=== PATIENT | female | born 1980 | race Caucasian/White ===

== ENCOUNTER → 2020-07-04 15:19 | Outpatient (CLI) | payer OTHER, SELFPAY ==
[2020-07-04 15:51] LABS: D-Dimer Quantitative (DVT/PE) 0.39 FEU/ug/m (0.27-0.49)
== END ==
PROVIDERS: PCP Student in an Organized Health Care Education/Training Program; Referring Provider Nurse Practitioner Primary Care; Visit Provider Nurse Practitioner Primary Care
DX: R07.9 Chest pain, unspecified (principal); R06.02 Shortness of breath
CPT/HCPCS: 85379

== ENCOUNTER 2020-07-30 10:15 | Emergency (ER) | payer OTHER, SELFPAY ==
[2020-07-30 10:18] VITALS: BP 150/93; PULSE 127; RESP 17; TEMP 37.9; O2SAT 98; BMI 28.1
--- NOTE | 2020-07-30 10:34 | EKG12_ITS ---
Test Reason : PALPS Blood Pressure : / mmHG Vent. Rate : 105 BPM Atrial Rate : 105 BPM P-R Int : 126 ms QRS Dur : 082 ms QT Int : 334 ms P-R-T Axes : 071 061 053 degrees QTc Int : 441 ms Sinus tachycardia Otherwise normal ECG Confirmed by GINA PETE, PADMINI ([id number]), newspaper editor managing BRENDA OSUNA ([id number]) on 08/02/2020 12:31:55 PM Referred By: ELAN Confirmed By:PADMINI FUENTES MD
--- NOTE | 2020-07-30 10:34 | CT_ITS ---
STUDY: CTA CHEST REASON FOR EXAM: Female, 39 years old. shortness of breath RADIATION DOSAGE (If Supplied By Facility): CTDIvol = ( 9.49 ) mGy, DLP = ( 324.93 ) mGycm TECHNIQUE: The examination was performed with the intravenous administration of IV 100mL Isovue-370. Post-processing of the angiographic images was performed, with multiplanar reformation and 3D reconstruction. Individualized dose optimization techniques were used for this CT. COMPARISON: None. FINDINGS: Normal enhancement of the main pulmonary artery and right and left pulmonary arteries. Normal enhancement of the bilateral peripheral pulmonary arteries. There is no demonstrated pulmonary embolism. Normal thoracic aorta and visualized great vessels. There is no demonstrated aortic dissection. Normal heart and pericardium. Normal mediastinum. Normal hilar regions. Normal visualized trachea and bronchi. The lungs are well expanded. There is a 5.5 mm semisolid nodule in the anterior basal segment of the left lower lobe, axial image 73, sagittal image 243. In a low risk patient, follow-up in 12 months would be adequate. Otherwise normal pulmonary parenchyma. Normal pleura. Normal chest wall structures. Normal osseous structures. Normal visualized upper abdomen. CT/CTA Chest W/WO Contrast IMPRESSION: Normal CTA chest examination, without a demonstrated pulmonary embolism or arterial dissection. Left lower lobe pulmonary nodule with recommendations as above. Electronically Signed: Hakan Sharp MD at 12:08 EST , Service support ,
[2020-07-30 10:42] VITALS: O2SAT 100
--- NOTE | 2020-07-30 10:44 | ED.DCSUM_ITS ---
History of Present Illness Chief Complaint: Palpitations Informant: Patient Narrative: 39-year-old female presenting with near syncopal event on . Patient states that she has been tachycardic at home. She denies any chest pain but does admit to some shortness of breath. On she stated that she felt like she was going to pass out and sat on the couch and do deep breathing. She has not had a return of those symptoms. Patient has body aches but does not have chills, change in taste or smell, cough. Patient admits to having COVID-19 in the end of May and recovered. Patient is on control. No history of DVT/PE. Past Medical History - Allergies and Home Meds Allergies/Adverse Reactions: Allergies azithromycin Allergy (Verified 07/30/20 10:17) ABD PAIN sulfamethoxazole [From Bactrim] Allergy (Verified 07/30/20 10:17) Rash trimethoprim [From Bactrim] Allergy (Verified 07/30/20 10:17) Rash acetaminophen [From Vicodin] Adverse Reaction (Verified 07/30/20 10:17) TRIPLE VISION hydrocodone [From Vicodin] Adverse Reaction (Verified 07/30/20 10:17) TRIPLE VISION Primary Care Physician: Steven Shepherd DO [Primary Care Provider] - Prior records reviewed: Yes Past Medical History: - - Patient denies significant medical history. Surgical History: noncontributory Lives: Spouse/ Significant Other Smoking Status: Never smoker Alcohol: None Drugs: None Review of Systems General: Denies: Chills, Fever, Malaise Eyes: Denies: Visual changes - bilaterally, Diplopia Cardiovascular: Reports: Palpitations, Heart racing. Denies: Chest pain Respiratory: Reports: Cough. Denies: Dyspnea, Sputum Gastrointestinal: Denies: Abdominal pain, Nausea, Vomiting, Diarrhea Genitourinary: Denies: Dysuria, Hematuria Musculoskeletal: Denies: Myalgias, Arthralgias Skin: Denies: Rash, Abscess Neurological: Denies: Headache, Weakness Psych: Denies: Depression, Anxiety Physical Exam Vital Signs/Narrative: Vital Signs Temp Pulse Resp BP Pulse Ox 07/30/20 10:42 100 07/30/20 10:18 100.2 F H 127 H 17 150/93 H 98 General: Well nourished, No Acute Distress Head: Normocephalic, Atraumatic Eyes: Perrl, EOMI ENT: Moist mucous membranes, No rhinorrhea Neck: Supple, Nontender Cardiovascular: Regular rhythm, Tachycardia Respiratory: No distress, CTA bilaterally Abdomen: Soft, Nontender, Nondistended Extremities: Nontender, No edema Skin: Normal color, No rash. Negative for: Cyanosis, Diaphoresis Neurological: Alert, Oriented x3, Cranial nerves II-XII grossly intact Psychological: Normal affect, Normal Mood Diagnostic/Tx/Re-eval Clinical Impression(s) from Imaging Studies Chest CTA 07/30/20 10:34 IMPRESSION: Normal CTA chest examination, without a demonstrated pulmonary embolism or arterial dissection. Left lower lobe pulmonary nodule with recommendations as above. Electronically Signed: Hakan Sharp MD at 12:08 EST , Service support , Laboratory Data 07/30/20 07/30/20 10:50 10:50 WBC 4.4 RBC 4.75 Hgb 14.0 Hct 42.8 MCV 90.1 MCH 29.5 MCHC 32.7 RDW Std Deviation 46.0 H RDW Coeff of Gali 13.8 Plt Count 260 MPV 10.0 Immature Gran % (Auto) 0.000 Neut % (Auto) 57.1 Lymph % (Auto) 32.4 [place] % (Auto) 8.0 Eos % (Auto) 1.6 Baso % (Auto) 0.9 Absolute Neuts (auto) 2.5 Absolute Lymphs (auto) 1.41 Nucleated RBC % 0 Sodium 137 Potassium 3.6 Chloride 105 Carbon Dioxide 28.0 Anion Gap 4 L BUN 14 Creatinine 0.92 Estim Creat Clear Calc 74.61 Est GFR (MDRD) Af Amer 87 Est GFR (MDRD) Non-Af 72 BUN/Creatinine Ratio 15.2 Glucose 103 Calcium 9.6 Troponin I < 0.015 - Medical Decision Making 39-year-old female presenting for tachycardia and concern for pulmonary embolism as she recently had Covid and is on a control pill. Patient had EKG performed on arrival which shows a sinus rhythm at 105 bpm without signs of ischemic changes as interpreted by myself. Had cardiac work-up which was negative. Patient is CTA of the chest which was negative for pulmonary embolism or dissection or other acute pulmonary process. Patient does have a pulmonary nodule. This was discussed with her. I think she is safe to be discharged home at this time. Impression: 1. Tachycardia 2. Pulmonary nodule ED Disposition - Plan for ED Patient: Disposition: Home or Assisted Living Instructions: ED Pulmonary Nodule, Solitary Referrals: Steven Shepherd DO [Primary Care Provider] -
[2020-07-30] MEDS: Aspirin 81 MG TAB.CHEW 324 MG PO (10:54)
[2020-07-30 11:01] LABS: Absolute Lymphocyte Count 1.41 X10^3/uL (0.83-4.51); Absolute Neutrophil Count 2.5 X10^3/uL (2.0-7.7); Basophil# 0.04 X10^3/uL; Basophil% 0.9 % (0-1); Eosinophil# 0.07 X10^3/uL; Eosinophils% 1.6 % (0-5); Hematocrit 42.8 % (37-47); Lymphocyte # 1.41 X10^3/ul (4.0); Lymphocyte % 32.4 % (19-41); Mean Corp Hgb Conc 32.7 g/dL (32-36); Mean Corpuscular Hgb 29.5 pg (27.0-32.0); Mean Corpuscular Volume 90.1 fL (81-99); Monocyte# 0.35 X10^3/uL; NRBC Flagged by Analyzer 0 % (0-5); Neutrophil # 2.48 X10^3/uL (2.7-7.7); Neutrophil % 57.1 % (47-70); Platelet Count 260 K/mm3 (150-450); RBC Distribution Width CV 13.8 % (11.6-14.6); Red Blood Count 4.75 M/mm3 (4.2-5.4); White Blood Count 4.4 K/mm3 (4.4-11.0)
[2020-07-30] MEDS: Acetaminophen 500 MG Tablet 1000 MG PO (11:10)
[2020-07-30 11:19] LABS: Anion Gap 4 (5-15); BUN 14 mg/dL (7-18); BUN/Creat Ratio 15.2 RATIO (10-20); Calcium,Total 9.6 mg/dL (8.5-10.1); Chloride 105 mmol/L (98-107); Creatinine, Serum 0.92 mg/dL (0.55-1.02); EST Glomerular Filtration Rate 72 mL/min (>60); Est Glom Filt Rate - Afr Amer 87 mL/min (>60); Estimated Creatinine Clearance 74.61 ml/min; Glucose 103 mg/dL (74-106); Potassium 3.6 mmol/L (3.5-5.1); Sodium Level 137 mmol/L (136-145)
[2020-07-30 13:10] VITALS: BP 111/76; PULSE 71; RESP 18; TEMP 37; O2SAT 97
== END 2020-07-30 13:13 | disposition home or self-care (01) ==
PROVIDERS: Emergency Provider Student in an Organized Health Care Education/Training Program; PCP Student in an Organized Health Care Education/Training Program
DX: R00.0 Tachycardia, unspecified (principal); R91.1 Solitary pulmonary nodule; Z88.1 Allergy status to other antibiotic agents; Z88.2 Allergy status to sulfonamides; Z88.5 Allergy status to narcotic agent
CPT/HCPCS: 71275; 80048; 84484; 85025; 93005; 99285; Q9967; A4216

== ENCOUNTER 2020-08-05 21:10 | Emergency (ER) | payer OTHER, SELFPAY ==
[2020-08-05 21:11] VITALS: BP 146/115; PULSE 138; RESP 18; TEMP 36.8; O2SAT 100; BMI 27.9
--- NOTE | 2020-08-05 22:19 | EKG12_ITS ---
Test Reason : TACHYCARDIA Blood Pressure : / mmHG Vent. Rate : 105 BPM Atrial Rate : 105 BPM P-R Int : 126 ms QRS Dur : 074 ms QT Int : 338 ms P-R-T Axes : 074 080 076 degrees QTc Int : 446 ms Sinus tachycardia Otherwise normal ECG Confirmed by CAMILA PETE, JEOVANY ([id number]), editor index BRENDA OSUNA ([id number]) on 08/08/2020 10:57:49 A M Referred By: DARIN Confirmed By:ICCI JENSEN MD
--- NOTE | 2020-08-05 22:30 | RAD_ITS ---
STUDY: X-RAY CHEST REASON FOR EXAM: Female, 39 years old. chest pain TECHNIQUE: AP portable COMPARISON: None. FINDINGS: The lungs are clear and expanded. There is no demonstrated pleural abnormality. Normal size heart. Normal mediastinum and casandra. Normal visualized pulmonary arteries. Normal visualized aortic arch and descending thoracic aorta. Normal visualized thoracic spine. Normal visualized ribs, clavicles, and shoulders. There is no demonstrated abnormality of the visualized soft tissue structures of the upper abdomen. RAD/Chest 1 View (Portable) IMPRESSION: Normal x-ray examination of the chest. Electronically Signed: Kirk Prasad MD at 22:43 EST , Service support ,
[2020-08-05 22:35] LABS: Absolute Lymphocyte Count 2.57 X10^3/uL (0.83-4.51); Absolute Neutrophil Count 2.4 X10^3/uL (2.0-7.7); Basophil# 0.04 X10^3/uL; Basophil% 0.7 % (0-1); Eosinophil# 0.11 X10^3/uL; Hematocrit 39.9 % (37-47); Hemoglobin 13.2 g/dL (12.0-15.0); Lymphocyte # 2.57 X10^3/ul (4.0); Lymphocyte % 45.9 % (19-41); Mean Corp Hgb Conc 33.1 g/dL (32-36); Mean Corpuscular Hgb 29.7 pg (27.0-32.0); Mean Corpuscular Volume 89.9 fL (81-99); Mean Platelet Vol. 10.6 fl (6.2-12.0); Monocyte# 0.53 X10^3/uL; Monocyte% 9.5 % (0-10); NRBC Flagged by Analyzer 0 % (0-5); Neutrophil # 2.35 X10^3/uL (2.7-7.7); Neutrophil % 41.9 % (47-70); Platelet Count 295 K/mm3 (150-450); RBC Distribution Width SD 46.3 fl (35.1-43.9); Red Blood Count 4.44 M/mm3 (4.2-5.4); White Blood Count 5.6 K/mm3 (4.4-11.0)
[2020-08-05] MEDS: 0.9% Normal Saline 1,000 ML 1000 ML IV (22:52)
[2020-08-05 22:55] LABS: Anion Gap 6 (5-15); BUN 14 mg/dL (7-18); BUN/Creat Ratio 15.1 RATIO (10-20); Calcium,Total 9.2 mg/dL (8.5-10.1); Chloride 105 mmol/L (98-107); Creatinine, Serum 0.92 mg/dL (0.55-1.02); EST Glomerular Filtration Rate 72 mL/min (>60); Est Glom Filt Rate - Afr Amer 87 mL/min (>60); Estimated Creatinine Clearance 74.61 ml/min; Glucose 121 mg/dL (74-106); Magnesium 2.2 mg/dL (1.6-2.6); Potassium 3.3 mmol/L (3.5-5.1); Sodium Level 140 mmol/L (136-145); Thyroid Stim Hormone (TSH) 6.43 uIU/mL (0.358-3.74)
[2020-08-05 23:01] LABS: BNP,B-Type NATRIURETIC PEPTIDE 16.8 pg/mL (0-100)
[2020-08-06 00:35] VITALS: BP 127/82; PULSE 86; RESP 19; O2SAT 98
--- NOTE | 2020-08-06 00:48 | ED.DCSUM_ITS ---
History of Present Illness Chief Complaint: Syncope Informant: Patient Narrative: Patient is a 39-year-old female with past medical history of Covid in May of this year, 6 weeks ago, presenting with palpitations syncope. States she is never fully recovered from Covid and actually was referred to see the [facility] clinic in [place]. Patient states that she has had intermittent episodes of feeling her heart racing and was actually seen in the ER for similar episode 1 week ago. At that time she had blood work including a CTA of the chest. She was instantly found have a pulmonary nodule but nothing else. She follow-up with her PCP today who referred her to the [facility] recovery clinic. Tonight patient woke up from a nap and then felt off. She walked down the hallway to put her kids to bed and started to feel that she was having a hard time to stand up and like she might pass out. She checked her heart rate and it was 141. Patient became very nervous that something could be wrong with her heart. She states she had pain associated with a fast heart rate and f eeling her heart was pumping out of her chest. Patient denies any shortness of breath but states that she felt like she was breathing faster when this was going on. Patient denies any other complaints at this time. She denies any swelling of her legs. Past Medical History - Allergies and Home Meds Allergies/Adverse Reactions: Allergies azithromycin Allergy (Verified 08/05/20 21:11) ABD PAIN sulfamethoxazole [From Bactrim] Allergy (Verified 08/05/20 21:11) Rash trimethoprim [From Bactrim] Allergy (Verified 08/05/20 21:11) Rash acetaminophen [From Vicodin] Adverse Reaction (Verified 08/05/20 21:11) TRIPLE VISION amoxicillin [From Augmentin] Adverse Reaction (Verified 08/05/20 21:11) Diarrhea clavulanic acid [From Augmentin] Adverse Reaction (Verified 08/05/20 21:11) Diarrhea hydrocodone [From Vicodin] Adverse Reaction (Verified 08/05/20 21:11) TRIPLE VISION tetanus and diphtheria toxoids Adverse Reaction (Verified 08/05/20 21:11) Other Primary Care Physician: Steven Shepherd DO [Primary Care Provider] - Past Medical History: None Surgical History: noncontributory Smoking Status: Never smoker Review of Systems General: Reports: Malaise. Denies: Chills, Fever, Sweats Eyes: Denies: Visual changes - bilaterally, Diplopia ENT: Denies: Rhinorrhea, Sore throat Cardiovascular: Reports: Chest pain, Palpitations, Heart racing Respiratory: Denies: Dyspnea, Cough, Dyspnea on exertion Gastrointestinal: Denies: Abdominal pain, Nausea, Vomiting, Diarrhea, Melena, Hematochezia Genitourinary: Denies: Dysuria, Hematuria, Frequency Musculoskeletal: Denies: Back pain, Extremity Pain Skin: Denies: Rash, Wounds Neurological: Reports: Weakness - Generalized. Denies: Headache, Numbness Physical Exam Vital Signs/Narrative: Vital Signs Temp Pulse Resp BP Pulse Ox 08/06/20 00:35 86 19 H 127/82 H 98 08/05/20 21:11 98.3 F 138 H 18 146/115 H 100 Inital Vital Signs reviewed: Yes General: Well nourished, Well developed, No Acute Distress Head: Normocephalic, Atraumatic Eyes: Perrl, EOMI ENT: Moist mucous membranes, No rhinorrhea Neck: Supple, Nontender Cardiovascular: Regular rate, Regular rhythm, No murmurs, - - 2+ radial and DP pulses Respiratory: No distress, CTA bilaterally, Chest nontender Abdomen: Soft, Nontender, Nondistended, Normal bowel sounds. Negative for: Guarding, Rebound tenderness Back: Nontender, Normal Inspection Extremities: Nontender, No edema Skin: Normal color, No rash Neurological: Alert, Oriented x3, Cranial nerves II-XII grossly intact, Normal Strength, Normal Sensation Psychological: Normal affect, Normal Mood, - - Anxious Diagnostic/Tx/Re-eval Chest X-Ray - ED: 1 View, Read by ED Physician, Read by Radiologist, No Acute Disease Clinical Impression(s) from Imaging Studies Chest X-Ray 08/05/20 22:30 IMPRESSION: Normal x-ray examination of the chest. Electronically Signed: Kirk Prasad MD at 22:43 EST , Service support , Laboratory Data 08/05/20 08/05/20 08/05/20 21:41 21:41 21:41 WBC 5.6 RBC 4.44 Hgb 13.2 Hct 39.9 MCV 89.9 MCH 29.7 MCHC 33.1 RDW Std Deviation 46.3 H RDW Coeff of Gali 14.0 Plt Count 295 MPV 10.6 Immature Gran % (Auto) 0.000 Neut % (Auto) 41.9 L Lymph % (Auto) 45.9 H [place] % (Auto) 9.5 Eos % (Auto) 2.0 Baso % (Auto) 0.7 Absolute Neuts (auto) 2.4 Absolute Lymphs (auto) 2.57 Nucleated RBC % 0 Sodium 140 Potassium 3.3 L Chloride 105 Carbon Dioxide 29.0 Anion Gap 6 BUN 14 Creatinine 0.92 Estim Creat Clear Calc 74.61 Est GFR (MDRD) Af Amer 87 Est GFR (MDRD) Non-Af 72 BUN/Creatinine Ratio 15.1 Glucose 121 H Calcium 9.2 Magnesium 2.2 Troponin I < 0.015 B-Natriuretic Peptide 16.8 TSH 6.43 H - Rhythm Strip Rhythm Strip: Sinus Tach Rate: 105 Ectopy: None - EKG Initial EKG Interpretation: Sinus Tachycardia, - - Victorino tachycardia rate of 105 Normal axis Normal intervals Normal ST segments Interpreted by emergency medicine physician - Medical Decision Making Patient is evaluated after episode of heart racing. Patient arrives in the ER and is tachycardic. Blood pressure is normal. She is in sinus tachycardia. Not suspect SVT or any more serious arrhythmia. Patient is quite anxious. She had a very similar episode a week ago where she was evaluated thoroughly in the ER. At that time she had negative CTA. Given the recurrence of her symptoms I do not think a repeat CTA or D-dimer is indicated. I think PE was effectively ruled out on her previous ER visit. I did check a TSH as well as recheck troponin and electrolytes. There is no significant abnormality. Patient's potassium is mildly low at 3.3. Her TSH is 6.43. Chest x-rays not show any acute process. She is counseled on her findings and she is also counseled to do not suspect her low potassium or TSH elevation to be the cause of her symptoms. Is possible this was more of a vasovagal episode as she had just been taking a nap and then started to walk down the hallway to take care of her children. This could be exacerbated by her recent Covid infection. Patient is given return precautions and encouraged to follow-up with the long-term Covid clinic. Patient is counseled on signs and symptoms requiring return to the emergency room. Patient verbalizes agreement and understand this plan. Patient discharged home in stable and improved condition. ED Disposition - Plan for ED Patient: Disposition: Home or Assisted Living Diagnosis: Near syncope, Palpitations Instructions: ED Near-Fainting, Uncertain Cause, ED Palpitations Referrals: Steven Shepherd DO [Primary Care Provider] -
[2020-08-06 00:59] VITALS: BP 120/76; PULSE 91; RESP 21; O2SAT 97
== END 2020-08-06 01:00 | disposition home or self-care (01) ==
PROVIDERS: Emergency Provider Emergency Medicine; PCP Student in an Organized Health Care Education/Training Program
DX: R55 Syncope and collapse (principal); R00.2 Palpitations; R00.0 Tachycardia, unspecified; Z88.0 Allergy status to penicillin; Z88.1 Allergy status to other antibiotic agents; Z88.2 Allergy status to sulfonamides; Z88.5 Allergy status to narcotic agent; Z86.16 Personal history of COVID-19; R91.1 Solitary pulmonary nodule
CPT/HCPCS: 71045; 80048; 83735; 83880; 84443; 84484; 85025; 93005; 96360; 99284; J7030; A4216

== ENCOUNTER → 2020-10-19 10:28 | Outpatient (CLI) | payer OTHER, SELFPAY ==
[2020-10-13 16:09] VITALS: BMI 28.5
== END ==
PROVIDERS: PCP Student in an Organized Health Care Education/Training Program; Referring Provider Internal Medicine Cardiovascular Disease; Visit Provider Internal Medicine Cardiovascular Disease
DX: R00.0 Tachycardia, unspecified (principal)
CPT/HCPCS: 93225; 93226

== ENCOUNTER → 2021-01-27 17:02 | Outpatient (CLI) | payer OTHER, SELFPAY ==
--- NOTE | 2021-01-27 17:30 | MRI_ITS ---
STUDY: MRI BRAIN WITH AND WITHOUT CONTRAST (ATTENTION INTERNAL AUDITORY CANALS - I.A.C.''s) REASON FOR EXAM: Female, 40 years old. DIZZINESS TECHNIQUE: Standardized multiplanar fat and water weighted pulse sequences were obtained. IV 15ml Dotarem was administered for the contrast portion of the examination. COMPARISON: None. FINDINGS: Normal bilateral temporal bones. Normal bilateral internal auditory canals. There is no demonstrated intracanalicular or cisternal vestibular schwannoma (acoustic neuroma). There is no enhancement of the bilateral VIIth or VIIIth cranial nerves. Normal bilateral cochlea, vestibules and semicircular canals. Normal size of the ventricles and extra-axial spaces for the patient''s age. Normal white matter tracts of the supratentorial brain. Normal bilateral basal ganglia. Normal thalami. There is no enhancing intra-axial or extra-axial abnormality. There is no extra-axial fluid accumulation. Normal sella turcica, pituitary gland, infundibular stalk, optic chiasm and hypothalamus. Normal tectal plate and pineal gland. Normal midbrain, estrella and medulla. There is approximately 5 mm downward displacement of the cerebellar tonsils without impression on the brainstem which is not consistent with Arnold-Chiari malformation. Otherwise the cerebellum is unremarkable. MRI/Brain W/WO Contrast IMPRESSION: There is no demonstrated intracanalicular or cisternal vestibular schwannoma (acoustic neuroma). Mild tonsillar ectopia. Electronically Signed: Claire Kruse MD at 16:04 EDT Tel , Service support ,
== END ==
PROVIDERS: PCP Student in an Organized Health Care Education/Training Program; Visit Provider Otolaryngology
DX: R42 Dizziness and giddiness (principal)
CPT/HCPCS: 70553; A9575

== ENCOUNTER 2021-03-09 15:50 | Outpatient (RCR) | payer OTHER, SELFPAY ==
--- NOTE | 2021-03-09 16:43 | HP.PTEVAL_ITS ---
Patient's Visit Information ISABEL ALBRECHT is a 40 year old F referred to Physical Therapy by Dr. Steven Shepherd DO with a diagnosis of BPPV. Date of Evaluation: 03/09/21 Physical Therapist: Silver Arredondo DPT, OCS, CSCS - Visit Plan Frequency: 1x/Week Duration: 2-4 Weeks Plan: weekly x 2-4 weeks for. progression of adaptation(next VOR x 2) and monitor for BPPV(not present today) - Subjective Initially got intense dizzyness of swiping motion and could not walk at end of November for a whole day. Woke up that way and intense until 4 pm. Slept that whole day. Vomitted if walked to bathroom. Called doctor. Swiping continued the next day but not as intense. Could walk and do functional activites. Still felt some movement. Could not read at the time. Was that way for a few weeks. Getting up in morning was intense. Went to doctor and flushed ear. Sent to ENT and thought it was virus. Did some vestibular ex on own and is now 80 % better overall. Called off work last week due to swiping. Doing eye movements at home as her vestibular ex. If she lies down down the next day is worse. Sleeping in recliner is good. Rolling in bed and lying down are not bad. Did get some swiping lying down last week and stayed til she fell asleep. 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 hobbies include reading and gardening and not able to do those as effectively as she used to. Last bad day was last Saturday. - Objective Walks normal with good balance, trasnfer normal and I. Steps reciprocal without rail. cervical AROMK WNL and painfree. UE AROM WNL and good strength. - B hallpike randall. - roll test. Balance is good. Oculomotor: no nystagmus with gaze or head shake. - skew eye deviation. - ocular tilt. normal pursuit and saccades and convergence3. VOR horizontal 30 sec 2/10 dizzyness x 25 seconds. VOR vertical 30 seconds no problem. VOR x 2, hard to focus and slightly dizzy. head thrust negative. - Balance/Special Test Scores Functional Gait Assessment Score: 30 % Disability: 0 Dizziness Score: 46 - Goals Goal 1:: abolish dizzyness 100% Goal Time Frame: 2-4 Weeks Goal 2:: sleep supine without syptoms normally Goal Time Frame: 2-4 Weeks Goal 3:: Pt report 100% improvement and able to focus without symptoms Goal Time Frame: 4-6 Weeks Goal 4:: <10 DHI - Rehabilitation Potential Physical Therapy Diagnosis: Likely unliateral vestibular hypofunction Rehabilitation Potential: Fair - Anticipated Interventions Patient/Client Instruction: Educate patient on: Condition, Plan of Care For the Purpose of:: To increase tolerance to activity/condition/position Comment: vestibular ex activites For the Purpose of:: To increase tolerance to activity/condition/position Thank you for the opportunity to evaluate your patient. For Medicare and Medicare HMO plans, please review the plan of care and approve it. It will need to be FAXED BACK to us at [phone] for Medicare purposes. For Medicare only, by signing this I certify the plan of care. Please let me know if there are questions or concerns regarding this plan of care. Physician Signature: Date:
--- NOTE | 2021-05-05 08:16 | HP.PT.NRP ---
ISABEL ALBRECHT was seen in my office for initial evaluation on 03/09/21. The following Plan of Care was established for this patient: Initial Frequency: 1x/Week Initial Duration: 2-4 Weeks Patient/Client Instruction: Educate patient on: Condition, Plan of Care For the Purpose of:: To increase tolerance to activity/condition/position For the Purpose of:: To increase tolerance to activity/condition/position This patient was last seen in our office 03/09/21. Pertinent comments regarding their Physical therapy will appear below: Pt seen for initial evaluation and POC established. Pt did not schedule or attend any further visits. At this point, it has been almost two months and I will discontinue her due to nonattendance. At this point I will be discontinuing this patient from physical therapy. I would be happy to see this patient again in the future if found appropriate by the physician. Thank you! Silver Arredondo, DPT, OCS, CSCS Balance/Gait/Functional tests - Balance/Special Test Scores Functional Gait Assessment Score: 30 % Disability: 0 Dizziness Score: 46
== END 2021-03-09 19:00 | disposition home or self-care (01) ==
LOC: PT 15:50
PROVIDERS: PCP Student in an Organized Health Care Education/Training Program; Referring Provider Student in an Organized Health Care Education/Training Program; Visit Provider Student in an Organized Health Care Education/Training Program
DX: H81.10 Benign paroxysmal vertigo, unspecified ear (principal)
CPT/HCPCS: 97161

== ENCOUNTER 2021-07-21 14:13 | Outpatient (CLI) | payer OTHER, SELFPAY ==
[2021-07-21 15:39] LABS: ALB/GLOB Ratio 0.9 RATIO (0.9-2.4); AST(SGOT) 17 U/L (15-37); Alanine Aminotransfer ALT/SGPT 21 U/L (13-56); Albumin, Serum 3.6 g/dL (3.2-5.0); Alkaline Phosphatase 84 U/L (45-117); Anion Gap 3 (5-15); BUN 17 mg/dL (7-18); BUN/Creat Ratio 20.5 RATIO (10-20); Calcium,Total 8.9 mg/dL (8.5-10.1); Chloride 107 mmol/L (98-107); Creatinine, Serum 0.83 mg/dL (0.55-1.02); EST Glomerular Filtration Rate 81 mL/min (>60); Est Glom Filt Rate - Afr Amer 98 mL/min (>60); Globulin 3.9 g/dL (2.2-4.2); Glucose 97 mg/dL (74-106); Magnesium 2.2 mg/dL (1.6-2.6); Potassium 3.9 mmol/L (3.5-5.1); Protein, Total 7.5 g/dL (6.4-8.2); Sodium Level 140 mmol/L (136-145); T4 Free Direct 0.98 ng/dL (0.76-1.46); Thyroid Stim Hormone (TSH) 1.74 uIU/mL (0.358-3.74)
== END 2021-07-21 23:59 | disposition home or self-care (01) ==
LOC: LAB 14:14
PROVIDERS: PCP Student in an Organized Health Care Education/Training Program; Visit Provider Nurse Practitioner Gerontology
DX: I49.8 Other specified cardiac arrhythmias (principal); R00.0 Tachycardia, unspecified
CPT/HCPCS: 36415; 80053; 83735; 84439; 84443

== ENCOUNTER → 2023-05-21 | Outpatient (CLI) | payer OTHER, SELFPAY | END | disposition home or self-care (01) | PROVIDERS: PCP Student in an Organized Health Care Education/Training Program; Referring Provider Nurse Practitioner Gerontology; Visit Provider Nurse Practitioner Gerontology | DX: R00.0 Tachycardia, unspecified (principal) | CPT/HCPCS: 93225; 93226 ==

== ENCOUNTER → 2024-07-16 | Outpatient (CLI) | payer OTHER, SELFPAY | END | disposition home or self-care (01) | LOC: PSN 07:39 | PROVIDERS: PCP Student in an Organized Health Care Education/Training Program; Referring Provider Internal Medicine Cardiovascular Disease; Visit Provider Internal Medicine Cardiovascular Disease | DX: I49.8 Other specified cardiac arrhythmias (principal) | CPT/HCPCS: 93225; 93226 ==

== ENCOUNTER → 2025-01-18 | Outpatient (CLI) | payer OTHER, SELFPAY ==
--- NOTE | 2025-01-18 10:31 | STE_ITS ---
Reason For Study Reason For Study: Chest Pain; Tachycardia Stress Results Protocol: Ronald Protocol Maximum Predicted HR: 177 bpm Target HR: 150 bpm % Maximum Predicted HR: 84 % DurationHeart Rate Stage (mm:ss) (bpm) BP Comment Baseline 77 114/68No Chest Pain; Metoprolol Taken Per Order; Compression Hose On Ronald Protocol Stage I 3:00 118 118/70No Chest Pain; Mild Dyspnea Ronald Protocol Stage II 3:00 141 134/72No Chest Pain; Moderate Dyspnea; Lightheaded Ronald Protocol Stage III 0:30 148 / No Chest Pain; Moderate Dyspnea; Lightheaded Recovery 96 110/64No Chest Pain; No Dyspnea Stress Duration: 6:30 mm:ss Maximum Stress HR: 148 bpm METS: 8 Baseline Echocardiogram Findings Stress Echo Wall motion Data Resting WM Intermediate WM Stress WM ECHO/Stress Test Echo w/o Contrast Interpretation Summary Stress echo 44-year-old lady with a history of tachycardia and POTS and chest pain. Rest EKG demonstrates sinus rhythm with a rate of 75 bpm and resting blood pres sure is 114/68 mmHg. The patient exercised according to regular Ronald protocol for total duration of 6-1/2 minut . The maximum heart rate attained was 153 bpm which was 86% of maximum predicted heart rate the maximum workload was 8.5 metabolic equivalents. At rest there were no ST or T wave changes noted suggest ischemia and at peak exercise upslop ing ST changes were noted which did not meet the criteria for ischemia. No clinical angina was noted the test was termi nated due to dyspnea and lightheadedness. The peak blood pressure is 140/68 mmHg which was a normal blood pressure respon se to exercise rate-pressure product was 18,900. Stress echocardiogram. The resting echocardiogram demonstrated an ejection fraction of 60% with no wal l motion abnormalities. At peak exercise there was improvement in ventricular function peaking of ejection fraction at 7 0%. No wall motion abnormalities were noted. Conclusion: Exercise stress echocardiogram with no EKG or echocardiographic criteria for is chemia at a moderate workload. Ordering Physician: Anatoly Capone Referring Physician: Anatoly Capone Performed By: Vannesa Brown RCS
== END | disposition home or self-care (01) ==
PROVIDERS: PCP Student in an Organized Health Care Education/Training Program; Referring Provider Nurse Practitioner Family; Visit Provider Nurse Practitioner Family
DX: R06.09 Other forms of dyspnea (principal); R07.9 Chest pain, unspecified; R00.0 Tachycardia, unspecified
CPT/HCPCS: 93017; 93350